=== PATIENT | female | born 2000 | race American Indian/Alaskan Native ===

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

== ENCOUNTER 2020-08-24 11:36 | Emergency (ER) | payer SELFPAY ==
[2020-08-24 11:46] VITALS: BP 145/71
[2020-08-24 12:26] LABS: Basophils % (Auto) 0.1 % (0.0-1.8); Eosinophils % (Auto) 0.1 % (0.0-4.3); Hematocrit 44.1 % (30.3-42.9); Hemoglobin 15.2 gm/dl (10.1-14.3); Lymphocytes % (Auto) 10.2 % (13.4-35.0); Mean Corpuscular HGB Conc 34 % (30-34); Mean Corpuscular Volume 88 fl (79-97); Monocytes # (Auto) 0.3 K/mm3 (0.0-0.8); Monocytes % (Auto) 2.8 % (0.0-7.3); Platelet Count 229 K/mm3 (140-440); Red Blood Count 5.01 M/mm3 (3.65-5.03); Red Cell Distribution Width 12.5 % (13.2-15.2)
[2020-08-24 12:47] LABS: Alanine Aminotransferase 25 units/L (7-56); Albumin 3.8 g/dL (3.9-5); BUN/Creatinine Ratio 16; Blood Urea Nitrogen 13 mg/dL (7-17); Hemolysis Index 8
--- NOTE | 2020-08-24 12:47 | Emergency Department Report ---
ED General Adult HPI - General Chief complaint: Abdominal Pain Stated complaint: STOMACH PAIN/ CANT KEEP FOOD DOWN Time Seen by Provider: 08/24/20 12:44 Source: patient Mode of arrival: Ambulatory Limitations: No Limitations - History of Present Illness Initial comments: 20-year-old female patient presents to the emergency department with complaints of upper abdominal pain and associated nausea/vomiting starting this morning. No known sick contacts. No current steroid or antibiotic use. States she took an at home test yesterday, which was negative. No history of prior abdominal surgeries. Describes the pain as "like a stomach cramp." Denies fever, chills, cough, diarrhea, constipation, urinary symptoms, vaginal bleeding, back pain. Denies all other complaints at this time. - Related Data Previous Rx's Medication Instructions Recorded Last Taken Type hydrOXYzine PAMOATE [Vistaril] 25 mg PO Q6HR PRN #12 capsule 08/08/16 Unknown Rx methylPREDNISolone [Medrol] 4 mg PO DAILY #1 tab.ds.pk 08/08/16 Unknown Rx Dicyclomine [Bentyl] 20 mg PO QID #30 tablet 08/24/20 Unknown Rx Ondansetron [Zofran Odt] 4 mg PO Q8HR #30 tab.rapdis 08/24/20 Unknown Rx Allergies Allergy/AdvReac Type Severity Reaction Status Date / Time No Known Allergies Allergy Unverified 08/08/16 17:39 ED Review of Systems ROS: Stated complaint: STOMACH PAIN/ CANT KEEP FOOD DOWN Other details as noted in HPI Other: GENERAL: Negative for fever, chills, weight change, anorexia, fatigue. ENT: Negative for ear pain, difficulty hearing, sore throat, nasal congestion, epistaxis. CARDIOVASCULAR: Negative for chest pain, palpitations, lower extremity swelling. PULMONARY: Negative for cough, dyspnea, wheezing, orthopnea, cyanosis. GASTROINTESTINAL: Positive for abdominal pain, nausea, vomiting. MUSCULOSKELETAL: Negative for joint pain, joint swelling, myalgias, back pain, neck pain. NEUROLOGICAL: Negative for headache, seizure, syncope, paresthesias, weakness. INTEGUMENTARY: Negative for erythema, rash, diaphoresis, laceration, ecchymosis. HEMATOLOGICAL: Negative for hemoptysis, hematemesis, hematochezia, hematuria. PSYCHIATRIC: Negative for hallucinations, suicidal ideation, homicidal ideation, anxiety, depression. ED Past Medical Hx - Past Medical History Previous Medical History?: No - Surgical History Past Surgical History?: No - Social History Smoking Status: Never Smoker Substance Use Type: None - Medications Home Medications: Home Medications Medication Instructions Recorded Confirmed Last Taken Type hydrOXYzine PAMOATE [Vistaril] 25 mg PO Q6HR PRN #12 capsule 08/08/16 Unknown Rx methylPREDNISolone [Medrol] 4 mg PO DAILY #1 tab.ds.pk 08/08/16 Unknown Rx Dicyclomine [Bentyl] 20 mg PO QID #30 tablet 08/24/20 Unknown Rx Ondansetron [Zofran Odt] 4 mg PO Q8HR #30 tab.rapdis 08/24/20 Unknown Rx ED Physical Exam - General Limitations: No Limitations - Other Other exam information: General: Awake and alert. No acute distress. Head: Atraumatic, normocephalic. Eyes: EOMI. Pupils are equal and round. Normal sclera and conjunctiva. ENT: Oral mucosa is moist. Normal pharyngeal exam. Neck: Supple. No lymphadenopathy. Pulmonary: No respiratory distress. Clear to auscultation bilaterally. Cardiac: Regular rate and rhythm. Pulses are palpable and equal bilaterally. No lower extremity cyanosis or edema. Skin: Warm and dry. No rashes. Abdomen: Soft, non-tender, non-protuberant. No guarding, rigidity, or rebound. Bowel sounds are normal. No organomegaly or masses noted. McBurney's point is nontender. Deras sign is negative. Patient endorses upper abdominal cramps without reproducible tenderness. Back: Normal alignment. No CVA tenderness. Extremities: Symmetrical. Full range of motion intact. Neurological: Alert and oriented, appropriately interactive, no focal deficits. Psych: Cooperative. Appropriate mood and affect. Speech is evenly metered. Thoughts are logically construed. ED Course Vital Signs 08/24/20 11:42 Temperature 98.2 F Pulse Rate 50 L Respiratory 18 Rate Blood Pressure 145/71 O2 Sat by Pulse 100 Oximetry ED Medical Decision Making - Lab Data Result diagrams: 08/24/20 12:13 08/24/20 12:13 - Medical Decision Making Differential diagnosis including but not limited to: cholecystitis, cholelithiasis, pancreatitis, peptic ulcer disease, viral infection, new onset diabetes On reevaluation, patient remains stable. No further vomiting in the emergency department. Repeat abdominal exam is benign. Labs are remarkable. Patient is afebrile, vital signs are reassuring, she has no tenderness on examination. History and exam findings are suggestive of viral infection. Patient be discharged home with appropriate symptomatic treatment and referred to primary care provider for close outpatient follow-up. Patient expressed understanding and is agreeable to plan of care. Disease transmission precautions discussed. Strict return precautions provided. Repeat exam is unremarkable and benign. History, exam, diagnostic testing, and current condition do not suggest worrisome pathology to warrant further testing, continued ED treatment, admission, or surgical evaluation at this point. Given the low probability of a significant medical illness, it would be more likely to result in harm than benefit to perform further testing at this stage. Discussed findings, presumptive diagnosis, need for follow-up and specific signs/symptoms that should prompt immediate return to the emergency department. Instructions were explained in detail to the patient in addition to giving written discharge information. Patient expressed understanding and was given the opportunity to ask questions, all of which were satisfactorily answered prior to discharge home. Critical care attestation.: If time is entered above; I have spent that time in minutes in the direct care of this critically ill patient, excluding procedure time. ED Disposition Clinical Impression: Nausea & vomiting Qualifiers: Vomiting type: unspecified Vomiting Intractability: non-intractable Qualified Code(s): R11.2 - Nausea with vomiting, unspecified Disposition: DC-01 TO HOME OR SELFCARE Is pt being admited?: No Does the pt Need Aspirin: No Condition: Stable Instructions: Nausea and Vomiting, Adult, [id number], Abdominal Pain (ED) Additional Instructions: Take Zofran as directed for nausea/vomiting. Take Bentyl as directed for stomach cramps. Rest. Drink plenty fluids. Wash hands frequently to prevent disease transmission. Do not share food or drinks with others. Follow-up with Dr. Gates, primary care provider, within 1 week. Call tomorrow to schedule an appointment. Return to the emergency department immediately for new or worsening symptoms. Specifically, return to the emergency department immediately for fever, worsening abdominal pain, increased vomiting, dehydration, mental status changes, black/bloody stools, or any other concerns. Prescriptions: Dicyclomine [Bentyl] 20 mg PO QID #30 tablet Ondansetron [Zofran Odt] 4 mg PO Q8HR #30 tab.rapdis Referrals: RHINA GATES MD [Staff Physician] - 3-5 Days Time of Disposition: 14:55
[2020-08-24 14:43] LABS: Bacteria,Urine 1+ /HPF (Negative); Bilirubin,Urine NEG (Negative); Blood,Urine NEG (Negative); Color,Urine Yellow (Yellow); Mucus,Urine FEW /HPF; Urobilinogen,Urine < 2.0 mg/dL (<2.0)
== END 2020-08-24 16:23 | disposition home or self-care (01) ==
LOC: ED 11:36
DX: R11.2 Nausea with vomiting, unspecified (principal); Z79.899 Other long term (current) drug therapy
CPT/HCPCS: 36415; 80053; 81001; 83690; 83735; 84702; 85025; 99283